=== PATIENT | female | born 1970 | race Caucasian/White ===

== ENCOUNTER → 2017-02-14 | Outpatient (CLI) | payer BC, OTHER | LOC: CT 12-25 15:00 → KOH-I 13:15 → CT 14:00 | DX: J44.9 Chronic obstructive pulmonary disease, unspecified (principal); J43.9 Emphysema, unspecified; J98.11 Atelectasis | CPT/HCPCS: 71250 ==

== ENCOUNTER 2017-02-25 16:30 | Emergency (ER) | payer BC, OTHER | END 2017-02-25 19:29 | disposition home or self-care (01) | LOC: ER1 16:30 | DX: G89.29 Other chronic pain (principal); M54.42 Lumbago with sciatica, left side; M54.41 Lumbago with sciatica, right side; F43.10 Post-traumatic stress disorder, unspecified; E78.5 Hyperlipidemia, unspecified; F31.9 Bipolar disorder, unspecified; Z90.710 Acquired absence of both cervix and uterus; Z79.899 Other long term (current) drug therapy; Z87.891 Personal history of nicotine dependence | CPT/HCPCS: 72131; 81001; 96372; 99284; J2930 ==

== ENCOUNTER 2017-03-07 19:00 | Emergency (ER) | payer BC, OTHER | END 2017-03-07 21:50 | disposition left against medical advice (07) | LOC: ER1 19:00 | DX: Z53.21 Procedure and treatment not carried out due to patient leaving prior to being seen by health care provider (principal) | CPT/HCPCS: 81001; 87086 ==